=== PATIENT | female | born 1995 | race Caucasian/White ===

== ENCOUNTER 2021-01-03 19:39 | Emergency (ER) | payer BC ==
[2021-01-03 20:10] LABS: HEMOGLOBIN 14.9 gm/dl (12.3-15.3); RED BLOOD COUNT 5.09 M/UL (4.00-5.10)
[2021-01-03 20:30] LABS: BUN/CREATININE RATIO 13 (0-10)
[2021-01-03] MEDS ORDERED: FLORASTOR250 MG PO (21:03)
[2021-01-03] MEDS ORDERED: ZOFRAN4 MG PO (21:03)
== END 2021-01-03 21:38 | disposition home or self-care (01) ==
LOC: ER1 19:39
PROVIDERS: Physician Assistant Medical
DX: R10.84 Generalized abdominal pain (principal); R11.2 Nausea with vomiting, unspecified; R19.7 Diarrhea, unspecified; Z88.2 Allergy status to sulfonamides; F17.290 Nicotine dependence, other tobacco product, uncomplicated
CPT/HCPCS: 80053; 81001; 83690; 84703; 85025; 96374; 99284; J2405; Q9967